=== PATIENT | female | born 1950 | race Caucasian/White ===

== ENCOUNTER 2019-03-23 13:49 | Outpatient (CLI) | payer MEDICARE ==
--- NOTE | 2019-03-23 16:21 | RAD ---
LEFT FOOT THREE VIEWS: History: Unspecified osteoarthritis. History of neuroma. FINDINGS: Mild osteoarthrosis changes are noted including the first metatarsal phalangeal joint. Small calcanea l plantar enthesophyte. No acute fracture or dislocation. IMPRESSION: Mild degenerative and osteoarthrosis changes without acute fracture or dislocation. POS: [facility]
== END 2019-03-23 13:50 | disposition home or self-care (01) ==
LOC: BICRAD 13:49
PROVIDERS: ATTEND Podiatrist
DX: M79.672 Pain in left foot (principal); M19.072 Primary osteoarthritis, left ankle and foot

== ENCOUNTER 2021-05-10 12:32 | Outpatient (CLI) | payer MEDICARE | END 2021-05-10 12:33 | disposition home or self-care (01) | LOC: LABBT 12:32 | PROVIDERS: ATTEND Orthopaedic Surgery | DX: Z01.818 Encounter for other preprocedural examination (principal); M17.12 Unilateral primary osteoarthritis, left knee; Z20.822 Contact with and (suspected) exposure to COVID-19 | CPT/HCPCS: 80048; 81003; 85025; 85610; 86850; 86900; 86901; 87081; 93005; U0003; U0005; 93010 ==

== ENCOUNTER 2021-05-15 05:26 | Observation (INO) | payer MEDICARE ==
[2021-05-10 13:45] LABS: Bilirubin Neg (Negative); Blood, Urine Negative (Negative); Clarity Slightly Cloudy (Clear); Glucose, Urine (Dipstick) Normal (Negative); Ketone, Urine 5 mg/dL (Negative); Leukocyte 25 (Negative); Nitrite Negative (Negative); Protein, Urine (Dipstick) 15 mg/dl (Neg-Trace); Specific Gravity, Urine 1.025 (1.002-1.036)
[2021-05-10 15:03] LABS: #Basophils 0.1 10x3/uL (0.0-0.2); #Eosinphils 0.2 10x3/uL (0.0-0.5); #Monocytes 0.6 10x3/uL (0.0-1.1); #Neutrophils 4.7 10x3/uL (1.5-8.4); %Basophils 0.7 % (0.0-2.0); %Eosinophils 2.3 % (0.0-6.0); %Lymphocytes 25.5 % (18.0-47.0); %Monocytes 7.7 % (0.0-10.0); %Neutrophils 63.5 % (40.0-75.0); Mean Corpuscular HGB CONC 35.1 g/dL (32.0-36.0); Mean Corpuscular Hemoglobin 34.7 pg (27.0-33.0); Mean Corpuscular Volume 98.7 fl (81.6-98.3); Mean Platelet Volume 10.2 fl (7.4-10.4); Platelet Count 300 10x3/uL (150-450); RBC Distribution Width 12.8 % (11.5-14.5); Red Blood Cell (RBC) Count 3.75 10x6/uL (3.90-5.03); White Blood Cell (WBC) Count 7.4 10x3/uL (3.5-10.5)
[2021-05-10 15:12] LABS: INR-International Normal Ratio 0.9; Prothrombin Time 10.4 sec (9.5-12.1)
[2021-05-10 15:17] LABS: Anion Gap 12 mmol/L (10-20); BUN (Urea Nitrogen) 13 mg/dL (9.8-20.1); Calc. Creatinine Clearance 0 mL/min (70-130); Carbon Dioxide 26 mmol/L (23-31); Chloride 110 mmol/L (98-107); Glucose 92 mg/dL (80-115); Potassium 4.4 mmol/L (3.5-5.1); Sodium 144 mmol/L (136-145)
[2021-05-11 00:39] LABS: SARS-CoV-2 PCR by NAA Not Detected (NotDetected)
[2021-05-11 12:23] VITALS: BMI 30.7
[2021-05-15] MEDS ORDERED: Tranexamic Acid 1,000 MG/10 ML VIAL ONE (05:50)
[2021-05-15] MEDS ORDERED: ceFAZolin 2 GM/DEX 5% 100 ML BAG ONE (05:50)
[2021-05-15] MEDS ORDERED: Sodium Chloride 0.9% 100 ML ONE (05:50)
[2021-05-15] MEDS ORDERED: Vancomycin 1.5 GRAM/300 ML BAG 1.5 GM in Premix Bag 1 BAG IVPB SCH ×2 (06:15→18:00)
[2021-05-15] MEDS ORDERED: VANCOMYCIN 1.25 GM/250 ML BAG 1.25 GM in Premix Bag 1 BAG IVPB SCH (06:15)
[2021-05-15] MEDS ORDERED: Bupivacaine PF 0.5% 30 ML VIAL ONE (06:23)
[2021-05-15] MEDS ORDERED: Midazolam HCl 2 mg/2 ml Vial ONE (06:33)
[2021-05-15] MEDS ORDERED: Fentanyl 100 MCG/2 ML VIAL ONE ×2 (06:33→08:02)
[2021-05-15] MEDS ORDERED: Lidocaine 1% (PF) 30 ML VIAL ONE (06:34)
[2021-05-15] MEDS ORDERED: Dexamethasone 20 MG/5 ML VIAL ONE (06:36)
[2021-05-15] MEDS ORDERED: PROPOFOL 200 MG/20 ML VIAL ONE (06:36)
[2021-05-15] MEDS ORDERED: Lidocaine 1% PF 5 ML VIAL ONE (06:36)
[2021-05-15] MEDS ORDERED: Ondansetron PF 4 MG/2 ML Vial ONE (06:36)
[2021-05-15] MEDS ORDERED: Bupivacaine HCl 0.5%/Epinephrine 1:200,000/PF 30 ml Vial ONE (06:36)
[2021-05-15] MEDS ORDERED: Ketorolac Tromethamine 30 MG/ML VIAL ONE (06:36)
[2021-05-15] MEDS ORDERED: Scopolamine 1.5 mg/72 hour Patch ONE (06:41)
[2021-05-15] MEDS ORDERED: Propofol 1,000 MG/100 ML VIAL IV ONE (07:05)
[2021-05-15] MEDS ORDERED: diphenhydrAMINE 25 MG CAP PO PRN (07:22)
[2021-05-15] MEDS ORDERED: traMADol HCl 50 MG TAB PO PRN ×3 (07:22→07:45)
[2021-05-15] MEDS ORDERED: Zolpidem Tartrate 5 MG TAB PO PRN ×2 (07:22→07:45)
[2021-05-15] MEDS ORDERED: Acetaminophen 325 MG TAB PO PRN (07:22)
[2021-05-15] MEDS ORDERED: Fentanyl 100 MCG/2 ML VIAL SLOW IVP PRN (07:22)
[2021-05-15] MEDS ORDERED: Promethazine HCl 25 MG/ML VIAL IM PRN ×3 (07:22→08:32)
[2021-05-15] MEDS ORDERED: HYDROcodone/Acetaminophen 10/325 mg Tablet PO PRN ×2 (07:22)
[2021-05-15] MEDS ORDERED: Ondansetron PF 4 MG/2 ML Vial IVP PRN ×2 (07:22→07:45)
[2021-05-15] MEDS ORDERED: Ergocalciferol 1.25 MG(50,000 UNITS) CAP PO SCH ×2 (07:30→09:00)
[2021-05-15] MEDS ORDERED: Tranexamic Acid 1,000 MG in Sodium Chloride 0.9% 100 ML IVPB SCH (07:30)
[2021-05-15] MEDS ORDERED: Ropivacaine 0.2% 550 ML 550 ML NERVE BLCK SCH (07:45)
[2021-05-15] MEDS ORDERED: Fentanyl 100 MCG/2 ML VIAL IV PRN (07:46)
[2021-05-15] MEDS ORDERED: HYDROmorphone 0.5 MG/0.5 ML SYRINGE ONE (08:05)
[2021-05-15] MEDS ORDERED: Ondansetron HCl/PF 4 MG/2 ML Vial IVP PRN (08:32)
[2021-05-15] MEDS ORDERED: PACU-Morphine 4MG/ML VIAL SLOW IVP PRN (08:32)
[2021-05-15] MEDS ORDERED: HYDROmorphone 2 MG/ML VIAL SLOW IVP PRN (08:32)
[2021-05-15] MEDS ORDERED: Promethazine HCl 25 MG/ML VIAL IVPB PRN (08:32)
[2021-05-15] MEDS ORDERED: MAGNESIUM AMINO ACID CHELATE PO SCH ×2 (09:00)
[2021-05-15] MEDS: Aspirin 81 mg Enteric Coated Tablet PO SCH ×2 (11:26→19:39)
[2021-05-15] MEDS: Dicyclomine 20 MG TAB PO SCH ×3 (11:26→19:39)
[2021-05-15] MEDS: metFORMIN 500 MG TAB PO SCH ×2 (11:27→19:39)
[2021-05-15] MEDS: Ferrous Gluconate 324 MG TAB PO SCH ×2 (11:27→19:39)
[2021-05-15] MEDS: Multivitamin W/ Minerals 1 TAB PO SCH (11:27)
[2021-05-15] MEDS: Senokot S 8.6-50 MG TAB PO SCH ×2 (11:27→19:39)
[2021-05-15] MEDS: Levothyroxine Sodium 75 MCG TAB PO SCH (11:31)
[2021-05-15] MEDS: Ketorolac Tromethamine 30 MG/ML VIAL IVP SCH ×3 (11:44→23:22)
[2021-05-15] MEDS: Venlafaxine HCl XR 150 MG CAP PO SCH (11:44)
[2021-05-15] MEDS: Sodium Chloride 0.9% 1,000 ML IV SCH ×4 (11:46→22:29)
[2021-05-15] MEDS ORDERED: Ketorolac Tromethamine 30 MG/ML VIAL IVP SCH (14:00)
[2021-05-15] MEDS ORDERED: CEFAZOLIN 2 GM in Premix Bag 1 BAG IVPB SCH (14:00)
[2021-05-15] MEDS: HYDROcodone/Acetaminophen 10/325 mg Tablet PO PRN ×2 (15:11→21:22)
[2021-05-15] MEDS: ceFAZolin Sodium/D5W 2 GM in Premix Bag 1 BAG IVPB SCH ×2 (16:09→23:22)
[2021-05-15] MEDS: Loratadine 10 MG TAB PO SCH (19:39)
[2021-05-15] MEDS: Montelukast Sodium 10 mg Tablet PO SCH (19:39)
[2021-05-15] MEDS: Atorvastatin Calcium 20 MG TAB PO SCH (19:39)
[2021-05-15] MEDS: Polyethylene Glycol 3350 17 GM Packet PO SCH (19:40)
[2021-05-15] MEDS ORDERED: Simvastatin 40 MG TAB PO SCH (21:00)
[2021-05-15] MEDS ORDERED: Non-Formulary Item 1 EACH (Levocetirizine Dihydrochloride [Levocetirizine Dihydrochloride PO SCH (21:00)
[2021-05-15] MEDS ORDERED: [UNRECOGNIZED DRUG - OTHER] PO SCH (21:00)
[2021-05-16] MEDS: HYDROcodone/Acetaminophen 10/325 mg Tablet PO PRN ×5 (01:35→21:39)
[2021-05-16] MEDS: Ketorolac Tromethamine 30 MG/ML VIAL IVP SCH ×4 (05:55→23:27)
[2021-05-16 06:14] LABS: Mean Corpuscular HGB CONC 34.5 g/dL (32.0-36.0); Mean Corpuscular Hemoglobin 35.4 pg (27.0-31.0); Mean Platelet Volume 7.3 fL (7.4-10.4); Platelet Count 250 thou/uL (130-400); RBC Distribution Width 11.7 % (11.5-14.5); White Blood Cell (WBC) Count 13.9 thou/uL (4.8-10.8)
[2021-05-16] MEDS: Levothyroxine Sodium 75 MCG TAB PO SCH (08:42)
[2021-05-16] MEDS: metFORMIN 500 MG TAB PO SCH ×2 (08:42→20:08)
[2021-05-16] MEDS: Ferrous Gluconate 324 MG TAB PO SCH ×2 (08:42→20:08)
[2021-05-16] MEDS: Dicyclomine 20 MG TAB PO SCH ×3 (08:42→20:08)
[2021-05-16] MEDS: Multivitamin W/ Minerals 1 TAB PO SCH (08:42)
[2021-05-16] MEDS: Venlafaxine HCl XR 150 MG CAP PO SCH (08:42)
[2021-05-16] MEDS: Senokot S 8.6-50 MG TAB PO SCH ×2 (08:42→20:07)
[2021-05-16] MEDS: Aspirin 81 mg Enteric Coated Tablet PO SCH ×2 (08:42→20:07)
[2021-05-16] MEDS ORDERED: FLU VACC QS2021-22(65YR UP)/PF 240 MCG/0.7 ML SYRINGE IM ONE (09:00)
[2021-05-16] MEDS: Sodium Chloride 0.9% 1,000 ML IV SCH ×2 (12:46→20:40)
[2021-05-16] MEDS: Montelukast Sodium 10 mg Tablet PO SCH (20:07)
[2021-05-16] MEDS: Atorvastatin Calcium 20 MG TAB PO SCH ×2 (20:07→20:08)
[2021-05-16] MEDS: Loratadine 10 MG TAB PO SCH (20:07)
[2021-05-16] MEDS: Polyethylene Glycol 3350 17 GM Packet PO SCH (20:07)
[2021-05-17] MEDS: HYDROcodone/Acetaminophen 10/325 mg Tablet PO PRN ×3 (02:28→14:02)
[2021-05-17] MEDS: Ketorolac Tromethamine 30 MG/ML VIAL IVP SCH (05:26)
[2021-05-17 05:53] LABS: Hemoglobin 11.3 g/dL (12.0-16.0); Mean Corpuscular HGB CONC 34.8 g/dL (32.0-36.0); Mean Corpuscular Hemoglobin 35.9 pg (27.0-31.0); Platelet Count 254 thou/uL (130-400); RBC Distribution Width 11.8 % (11.5-14.5); Red Blood Cell (RBC) Count 3.16 mill/uL (4.20-5.40); White Blood Cell (WBC) Count 12.1 thou/uL (4.8-10.8)
[2021-05-17] MEDS: Aspirin 81 mg Enteric Coated Tablet PO SCH (08:20)
[2021-05-17] MEDS: Ferrous Gluconate 324 MG TAB PO SCH (08:21)
[2021-05-17] MEDS: Venlafaxine HCl XR 150 MG CAP PO SCH (08:21)
[2021-05-17] MEDS: metFORMIN 500 MG TAB PO SCH (08:21)
[2021-05-17] MEDS: Multivitamin W/ Minerals 1 TAB PO SCH (08:21)
[2021-05-17] MEDS: Dicyclomine 20 MG TAB PO SCH ×2 (08:21→14:02)
[2021-05-17] MEDS: Levothyroxine Sodium 75 MCG TAB PO SCH (08:21)
[2021-05-17] MEDS: Senokot S 8.6-50 MG TAB PO SCH (08:21)
[2021-05-17] MEDS: Sodium Chloride 0.9% 1,000 ML IV SCH (08:22)
[2021-05-17 11:54] VITALS: BP 161/95; TEMP 98.2
== END 2021-05-17 15:45 | disposition home or self-care (01) ==
LOC: SDC 05:26 → SJJU 07:22 → SDC 05-16 10:50 → SJJU 05-16 10:50
PROVIDERS: ADMIT Orthopaedic Surgery; ATTEND Orthopaedic Surgery
PROC: 0SRD0JZ Replacement of Left Knee Joint with Synthetic Substitute, Open Approach (ICD-10-PCS; principal; 2021-05-16)
PROC: 3E0T3BZ Introduction of Anesthetic Agent into Peripheral Nerves and Plexi, Percutaneous Approach (ICD-10-PCS; 2021-05-16)
DX: M17.12 Unilateral primary osteoarthritis, left knee (principal); I10 Essential (primary) hypertension; E78.5 Hyperlipidemia, unspecified; G47.33 Obstructive sleep apnea (adult) (pediatric); Z79.84 Long term (current) use of oral hypoglycemic drugs; Z79.899 Other long term (current) drug therapy; Z88.5 Allergy status to narcotic agent; Z91.018 Allergy to other foods
CPT/HCPCS: 27447; 64448; 80048; 81003; 82962; 85025; 85027 ×2; 85610; 86850; 86900; 86901; 87081; 96374; 96376; 97110; 97116 ×2; 97139; 97530 ×2; A4306 ×2; C1713; C1776; G0378 ×2; U0003; U0005; 36415; 36416; J1100; J1170; J1885; J2001; J2250; J2405; J2704; J2795; J3010; J3370; J3490; J7050; S0020

== ENCOUNTER 2023-03-13 05:59 | Inpatient (IN) | payer MEDICARE ==
[2023-03-11 10:27] VITALS: BMI 31.3
[2023-03-11 11:25] LABS: #Eosinphils 0.2 10x3/uL (0.0-0.5); #Monocytes 0.5 10x3/uL (0.0-1.1); #Neutrophils 4.7 10x3/uL (1.5-8.4); %Basophils 0.6 % (0.0-2.0); %Eosinophils 3.4 % (0.0-6.0); %Lymphocytes 22.4 % (18.0-47.0); %Monocytes 6.9 % (0.0-10.0); %Neutrophils 66.4 % (40.0-75.0); Hematocrit 36.8 % (34.9-44.5); Hemoglobin 13.2 g/dL (12.0-15.5); Mean Corpuscular HGB CONC 35.9 g/dL (32.0-36.0); Mean Corpuscular Hemoglobin 33.5 pg (27.0-33.0); Mean Corpuscular Volume 93.4 fl (81.6-98.3); Mean Platelet Volume 10.2 fl (7.4-10.4); Platelet Count 309 10x3/uL (150-450); RBC Distribution Width 12.1 % (11.5-14.5); Red Blood Cell (RBC) Count 3.94 10x6/uL (3.90-5.03)
[2023-03-11 11:34] LABS: Prothrombin Time 10.4 sec (9.5-12.1)
[2023-03-11 11:34] LABS: Bilirubin Neg (Negative); Blood, Urine Negative (Negative); Glucose, Urine (Dipstick) 250 mg/dL (Negative); Ketone, Urine Negative (Negative); Leukocyte 100 (Negative); Nitrite Negative (Negative); Protein, Urine (Dipstick) 15 mg/dl (Neg-Trace); Specific Gravity, Urine 1.015 (1.005-1.030); Urobilinogen Normal mg/dL (Less than 2)
[2023-03-11 11:36] LABS: Clarity Hazy (Clear)
[2023-03-11 11:46] LABS: Anion Gap 15 mmol/L (10-20); BUN (Urea Nitrogen) 11 mg/dL (9.8-20.1); Calc. Creatinine Clearance 0 mL/min (70-130); Calcium 8.5 mg/dL (7.8-10.44); Carbon Dioxide 25 mmol/L (23-31); Chloride 105 mmol/L (98-107); Estimated GFR 80; Glucose 157 mg/dL (80-115); Sodium 142 mmol/L (136-145)
[2023-03-13] MEDS ORDERED: Tranexamic Acid 1,000 MG/10 ML VIAL ONE (06:22)
[2023-03-13] MEDS ORDERED: Sodium Chloride 0.9% 100 ML ONE ×2 (06:22→07:13)
[2023-03-13] MEDS ORDERED: Vancomycin (BATCH) 1.5 GRAM/300 ML BAG ONE (06:23)
[2023-03-13] MEDS ORDERED: Bupivacaine 0.25% HCL 30 ML VIAL ONE (06:25)
[2023-03-13] MEDS ORDERED: fentaNYL 50 mcg/mL 1 mL Vial ONE ×2 (07:03→07:30)
[2023-03-13] MEDS ORDERED: Midazolam HCl 2 mg/2 ml Vial ONE (07:03)
[2023-03-13] MEDS ORDERED: Bupivacaine PF 0.5% 30 ML VIAL ONE (07:03)
[2023-03-13] MEDS ORDERED: CEFAZOLIN 2 GM VIAL ONE (07:13)
[2023-03-13] MEDS ORDERED: fentaNYL 50 mcg/mL 1 mL Vial SLOW IVP PRN (07:28)
[2023-03-13] MEDS ORDERED: Ondansetron PF 4 MG/2 ML Vial IVP PRN ×2 (07:30→10:29)
[2023-03-13] MEDS ORDERED: Ropivacaine 0.2% 550 ML 550 ML NERVE BLCK SCH (07:30)
[2023-03-13] MEDS ORDERED: HYDROcodone/Acetaminophen 10/325 mg Tablet PO PRN ×2 (07:30)
[2023-03-13] MEDS ORDERED: Promethazine HCl 25 MG/ML VIAL IM PRN ×2 (07:30→10:29)
[2023-03-13] MEDS ORDERED: traMADol HCl 50 MG TAB PO PRN ×2 (07:30)
[2023-03-13] MEDS ORDERED: Zolpidem Tartrate 5 MG TAB PO PRN ×2 (07:30→10:29)
[2023-03-13] MEDS ORDERED: Bupivacaine HCl 0.5%/Epinephrine 1:200,000/PF 30 ml Vial ONE (07:38)
[2023-03-13] MEDS ORDERED: diphenhydrAMINE 50 MG/ML VIAL ONE (07:38)
[2023-03-13] MEDS ORDERED: Lidocaine 1% PF 5 ML VIAL ONE (07:38)
[2023-03-13] MEDS ORDERED: PROPOFOL 200 MG/20 ML VIAL ONE (07:38)
[2023-03-13] MEDS ORDERED: Metoprolol Tartrate 5 MG/5 ML VIAL ONE (07:38)
[2023-03-13] MEDS ORDERED: Ondansetron PF 4 MG/2 ML Vial ONE ×3 (07:38→08:55)
[2023-03-13] MEDS ORDERED: Dexamethasone 20 MG/5 ML VIAL ONE (07:38)
[2023-03-13] MEDS ORDERED: Ketorolac Tromethamine 30 MG/ML VIAL ONE (07:38)
[2023-03-13] MEDS ORDERED: Metoclopramide HCl 10 MG/2 ML VIAL ONE (07:38)
[2023-03-13] MEDS ORDERED: HYDROmorphone 2 MG/ML VIAL ONE (08:53)
[2023-03-13] MEDS ORDERED: diphenhydrAMINE 25 MG CAP PO PRN (10:29)
[2023-03-13] MEDS ORDERED: Acetaminophen 325 MG TAB PO PRN (10:29)
[2023-03-13] MEDS ORDERED: Vancomycin HCl 1.5 GM in Sodium Chloride 0.9% 250 ML 300 ML IVPB SCH (10:30)
[2023-03-13] MEDS ORDERED: Tranexamic Acid 1,000 MG in Sodium Chloride 0.9% 100 ML IVPB SCH (11:00)
[2023-03-13] MEDS: Ketorolac Tromethamine 30 MG/ML VIAL IVP SCH ×3 (12:12→23:20)
[2023-03-13] MEDS: Sodium Chloride 0.9% 1,000 ML IV SCH ×2 (12:13→21:06)
[2023-03-13] MEDS ORDERED: Dextrose 50% Abboject 50 ML SYRINGE IVP PRN (13:00)
[2023-03-13] MEDS ORDERED: Dextrose 5% in Water 1,000 ML IV PRN (13:00)
[2023-03-13] MEDS ORDERED: Glucagon 1 MG/ML KIT IM PRN (13:00)
[2023-03-13] MEDS: HumaLOG 300 UNITS/3 ML VIAL SC PRN ×2 (13:00→17:55)
[2023-03-13] MEDS: Dicyclomine 20 MG TAB PO SCH ×2 (15:38→21:11)
[2023-03-13] MEDS: CEFAZOLIN 2 GM in Sodium Chloride 0.9% 100 ML IVPB SCH ×2 (15:39→23:23)
[2023-03-13] MEDS ORDERED: Nebivolol HCl 5 MG TAB PO SCH (16:15)
[2023-03-13] MEDS ORDERED: hydrALAZINE 25 MG TAB PO PRN ×2 (16:16→18:58)
[2023-03-13] MEDS ORDERED: hydrALAZINE 20 MG/ML VIAL SLOW IVP PRN (16:16)
[2023-03-13 16:52] LABS: Anion Gap 16 mmol/L (10-20); BUN (Urea Nitrogen) 11 mg/dL (9.8-20.1); Calc. Creatinine Clearance 87 mL/min (70-130); Calcium 7.8 mg/dL (7.8-10.44); Carbon Dioxide 22 mmol/L (23-31); Chloride 102 mmol/L (98-107); Estimated GFR 73; Glucose 315 mg/dL (80-115); Magnesium 1.2 mg/dL (1.6-2.6); Potassium 3.4 mmol/L (3.5-5.1); Sodium 137 mmol/L (136-145)
[2023-03-13] MEDS ORDERED: Potassium Chloride 20 MEQ TAB PO SCH (18:45)
[2023-03-13] MEDS ORDERED: HumaLOG 300 UNITS/3 ML VIAL SC PRN ×2 (18:49)
[2023-03-13] MEDS ORDERED: cloNIDine 0.1 MG TAB PO PRN ×2 (18:55→18:58)
[2023-03-13] MEDS ORDERED: Magnesium Sulfate In Water 4 GM in Premix Bag 1 BAG IVPB SCH (19:00)
[2023-03-13] MEDS ORDERED: Vancomycin 1.5 GRAM/300 ML BAG 1.5 GM in Premix Bag 1 BAG IVPB SCH (20:00)
[2023-03-13] MEDS ORDERED: Montelukast Sodium 10 mg Tablet PO SCH (21:00)
[2023-03-13] MEDS ORDERED: Loratadine 10 MG TAB PO SCH (21:00)
[2023-03-13] MEDS ORDERED: Atorvastatin Calcium 20 MG TAB PO SCH (21:00)
[2023-03-13] MEDS ORDERED: Venlafaxine HCl XR 150 MG CAP PO SCH (21:00)
[2023-03-13] MEDS: metFORMIN 500 MG TAB PO SCH (21:02)
[2023-03-13] MEDS: Aspirin 81 mg Enteric Coated Tablet PO SCH (21:02)
[2023-03-13] MEDS: Senokot S 8.6-50 MG TAB PO SCH (21:02)
[2023-03-13] MEDS: Ferrous Gluconate 324 MG TAB PO SCH (21:02)
[2023-03-14 05:57] LABS: Hematocrit 29.8 % (36.0-47.0); Hemoglobin 10.6 g/dL (12.0-16.0); Mean Corpuscular HGB CONC 35.6 g/dL (32.0-36.0); Mean Corpuscular Hemoglobin 34.3 pg (27.0-31.0); Mean Corpuscular Volume 96.4 fl (78.0-98.0); Mean Platelet Volume 10.2 fL (7.4-10.4); Platelet Count 254 10x3/uL (130-400); RBC Distribution Width 12.4 % (11.5-14.5); Red Blood Cell (RBC) Count 3.09 mill/uL (4.20-5.40); White Blood Cell (WBC) Count 14.8 10x3/uL (4.8-10.8)
[2023-03-14] MEDS ORDERED: Levothyroxine Sodium 75 MCG TAB PO SCH (06:00)
[2023-03-14 06:26] LABS: Magnesium 2.6 mg/dL (1.6-2.6); Potassium 3.5 mmol/L (3.5-5.1)
[2023-03-14] MEDS: Ketorolac Tromethamine 30 MG/ML VIAL IVP SCH ×3 (06:35→12:52)
[2023-03-14] MEDS: Sodium Chloride 0.9% 1,000 ML IV SCH (06:36)
[2023-03-14] MEDS ORDERED: glipiZIDE 5 MG TAB PO SCH (07:30)
[2023-03-14] MEDS: metFORMIN 500 MG TAB PO SCH (08:31)
[2023-03-14] MEDS: Senokot S 8.6-50 MG TAB PO SCH (08:31)
[2023-03-14] MEDS: Ferrous Gluconate 324 MG TAB PO SCH (08:31)
[2023-03-14] MEDS: Aspirin 81 mg Enteric Coated Tablet PO SCH (08:32)
[2023-03-14] MEDS ORDERED: Venlafaxine HCl XR 150 MG CAP PO SCH (09:00)
[2023-03-14] MEDS ORDERED: Multivitamin W/ Minerals 1 TAB PO SCH (09:00)
[2023-03-14] MEDS ORDERED: Meloxicam 7.5 MG TAB PO SCH (09:00)
[2023-03-14] MEDS ORDERED: Nebivolol HCl 5 MG TAB PO SCH (09:00)
[2023-03-14] MEDS: Dicyclomine 20 MG TAB PO SCH ×2 (10:11→16:00)
[2023-03-14 11:51] VITALS: BP 159/78; TEMP 98.2
[2023-03-16] MEDS ORDERED: FLU VACC QS2023(65UP)/MF59C/PF 60 MCG/0.5 ML SYRINGE IM ONE (09:00)
[2023-03-20] MEDS ORDERED: Ergocalciferol 1.25 MG(50,000 UNITS) CAP PO SCH (09:00)
== END 2023-03-14 15:26 | disposition home or self-care (01) | DRG 470 ==
LOC: SDC 05:59 → SJJU 10:29 → OBSVTOIN 14:50
PROVIDERS: ADMIT Orthopaedic Surgery; ATTEND Orthopaedic Surgery
PROC: 0SRC0J9 Replacement of Right Knee Joint with Synthetic Substitute, Cemented, Open Approach (ICD-10-PCS; principal; 2023-03-14)
DX: M17.11 Unilateral primary osteoarthritis, right knee (principal); I10 Essential (primary) hypertension; E11.9 Type 2 diabetes mellitus without complications; F41.9 Anxiety disorder, unspecified; G47.33 Obstructive sleep apnea (adult) (pediatric); E87.6 Hypokalemia; E83.42 Hypomagnesemia; G89.29 Other chronic pain; Z96.652 Presence of left artificial knee joint; F32.A Depression, unspecified; K21.9 Gastro-esophageal reflux disease without esophagitis; Z88.5 Allergy status to narcotic agent; Z88.8 Allergy status to other drugs, medicaments and biological substances; Z79.899 Other long term (current) drug therapy; Z98.891 History of uterine scar from previous surgery; Z98.51 Tubal ligation status; Z98.890 Other specified postprocedural states; Z82.49 Family history of ischemic heart disease and other diseases of the circulatory system; Z85.820 Personal history of malignant melanoma of skin
CPT/HCPCS: 36415; 36416; 80048; 81003; 83735; 84132; 85025; 85027; 85610; 86850; 86900; 86901; 96374; 96375; A4306; C1776; G0378; J1100; J1170; J1200; J1815; J1885; J2250; J2405; J2704; J2765; J2795; J3010; J3370; J3475; J3490; S0020